=== PATIENT | male | born 1965 | race African-American/Black ===

== ENCOUNTER → 2023-02-23 | Day surgery (SDC) | payer MEDICARE ==
[~2023-02-23] MED LIST: ASPIRIN EC81 MG PO; LACTATED RINGER'S 1,000 ML ONE; LIDOCAINE HCL 2% LOCAL INJ 5 ML SDV VIAL INJ ONE; METFORMIN HCL500 MG PO; MIDAZOLAM HCL 2 MG/2 ML VIAL ONE; OZEMPIC1 MG/0.71 SC; PROPOFOL IV EMULSION 10 MG/ML 20 ML VIAL ONE
[2023-02-23 13:00] VITALS: BP 130/90; PULSE 56; RESP 16; O2SAT 97
== END | disposition home or self-care (01) ==
LOC: OR 10:34
PROVIDERS: ATTEND Internal Medicine Gastroenterology
DX: Z12.11 Encounter for screening for malignant neoplasm of colon (principal); D12.0 Benign neoplasm of cecum; D12.3 Benign neoplasm of transverse colon; D12.4 Benign neoplasm of descending colon; D12.8 Benign neoplasm of rectum; K29.50 Unspecified chronic gastritis without bleeding; B96.81 Helicobacter pylori [H. pylori] as the cause of diseases classified elsewhere; K21.9 Gastro-esophageal reflux disease without esophagitis; K44.9 Diaphragmatic hernia without obstruction or gangrene; R19.7 Diarrhea, unspecified; K64.8 Other hemorrhoids; E78.5 Hyperlipidemia, unspecified; E11.9 Type 2 diabetes mellitus without complications; R03.0 Elevated blood-pressure reading, without diagnosis of hypertension; I45.10 Unspecified right bundle-branch block; Z01.810 Encounter for preprocedural cardiovascular examination; Z79.82 Long term (current) use of aspirin; Z79.84 Long term (current) use of oral hypoglycemic drugs; Z79.85 Long-term (current) use of injectable non-insulin antidiabetic drugs; Z68.31 Body mass index [BMI] 31.0-31.9, adult; Z89.612 Acquired absence of left leg above knee
CPT/HCPCS: 36415; 43239; 45380; 45381; 45384; 45385; 82948; 88112; 88305; 88312; 88342; 93005; J2001; J2250; J2704; J7121; 45378

== ENCOUNTER → 2023-05-25 | Day surgery (SDC) | payer MEDICARE ==
[~2023-05-25] MED LIST changes: -MIDAZOLAM HCL 2 MG/2 ML VIAL ONE
[2023-05-25 10:53] VITALS: TEMP 97.5
[2023-05-25 11:20] VITALS: BP 108/70; PULSE 68; RESP 16; O2SAT 97
== END | disposition home or self-care (01) ==
LOC: OR 09:15
PROVIDERS: ATTEND Internal Medicine Gastroenterology
DX: Z09 Encounter for follow-up examination after completed treatment for conditions other than malignant neoplasm (principal); D12.2 Benign neoplasm of ascending colon; D12.5 Benign neoplasm of sigmoid colon; K57.30 Diverticulosis of large intestine without perforation or abscess without bleeding; K64.8 Other hemorrhoids; K29.70 Gastritis, unspecified, without bleeding; K21.9 Gastro-esophageal reflux disease without esophagitis; K44.9 Diaphragmatic hernia without obstruction or gangrene; B37.81 Candidal esophagitis; A04.8 Other specified bacterial intestinal infections; E11.9 Type 2 diabetes mellitus without complications; R03.0 Elevated blood-pressure reading, without diagnosis of hypertension; Z79.82 Long term (current) use of aspirin; Z79.84 Long term (current) use of oral hypoglycemic drugs; Z68.33 Body mass index [BMI] 33.0-33.9, adult; Z89.612 Acquired absence of left leg above knee
CPT/HCPCS: 36415; 45380; 45384; 82948; 88305; J2001; J2704; J7121; 45378